=== PATIENT | female | born 1980 | race African-American/Black ===

== ENCOUNTER 2022-10-13 08:53 | Emergency (ER) | payer OTHER, SELFPAY ==
[2022-10-13] VITALS (8 sets, daily range): BP systolic 122–135; BP diastolic 78–86; PULSE 65–80; RESP 18; TEMP 36.6; O2SAT 100; BMI 24.3
--- NOTE | 2022-10-13 09:06 | ED.GENADULT ---
HPI - General Adult General Chief complaint: Abdominal Pain Stated complaint: pain LT flank side T-2 Time Seen by Provider: 10/13/22 08:58 History of Present Illness HPI narrative: 42-year-old female nonsmoker with noncontributory chronic medical history presents for evaluation of gradually worsening epigastric and left upper quadrant pain that started probably 2 days ago. She states that initially she felt like it might be gas pain and seemed to sort of come and go with a mind of its own but largely seems to be worse with some food improved when sitting up and worse when lying flat. She denies associated symptoms such as fever chills, nausea, vomiting or diarrhea. She did have some constipation and admits that she recently fasted for about 3 days. She denies any other change in medications or diet. She denies urinary issues such as frequency, urgency, hematuria. She denies chest pain or shortness of breath. Related Data Allergies Allergy/AdvReac Type Severity Reaction Status Date / Time No Known Drug Allergies Allergy Verified 10/13/22 09:38 Review of Systems Review of Systems Narrative: GENERAL: Denies chills, fatigue, malaise, fever, sweats. HEENT: Denies sinus pain, ear pain, sore throat, difficulty swallowing, dizziness. RESPIRATORY: Denies dyspnea, cough, wheezing, hemoptysis, sputum. CARDIOVASCULAR: Denies chest pain, palpitations, orthopnea, edema, GASTROINTESTINAL: See HPI : Denies dysuria, frequency, incontinence, hematuria, urinary retention. MUSCULOSKELETAL: denies weakness, joint pain, or bony pain SKIN: Denies rash, skin lesions, or other NEUROLOGIC: Denies weakness, headache, numbness, change in speech, confusion, seizures, incoordination. PSYCHIATRIC: No concerning psychosocial issues. 12 point review of systems is negative except for those stated above Patient History Social History Smoking Status: Never smoker Exam Narrative Exam Narrative: GENERAL: [42] year old patient appears stated age. Well-developed patient, in mild distress. HEAD: Atraumatic. Normocephalic. EYES: Pupils equal round and reactive. Extraocular motions intact. No scleral icterus. No injection or drainage. ENT: Nose without bleeding, purulent drainage. Throat without erythema, tonsillar hypertrophy or exudate. Airway patent. NECK: Trachea midline. Non tender CARDIOVASCULAR: Regular rate and rhythm without murmurs, gallops, or rubs. RESPIRATORY: Clear to auscultation. Breath sounds equal bilaterally. No wheezes, rales, or rhonchi. GASTROINTESTINAL: Abdomen soft, nondistended. Epigastric and left upper quadrant pain on palpation, no rebound, minimal voluntary guarding EXTREMITIES: No edema or joint tenderness. BACK: Nontender without deformity or crepitance. No flank tenderness. NEURO: AOx3. SKIN: No rash or erythema of visible areas Initial Vital Signs Initial Vital Signs: Vital Signs Pulse Rate 73 10/13/22 09:03 Blood Pressure 132/84 10/13/22 09:03 Pulse Oximetry 100 10/13/22 09:03 Course Orders Ordered: Discontinued Medications Sodium Chloride (Normal Saline 0.9%) 1,000 mls @ 1,000 mls/hr IV BOLUS ONE Stop: 10/13/22 10:06 Last Infusion: 10/13/22 11:21 Dose: 0 mls/hr Documented By: Admin: 10/13/22 09:38 Dose: 1,000 mls/hr Documented By: MARK Pantoprazole Sodium (Pantoprazole 40 Mg Vial) 40 mg IV NOW ONE Stop: 10/13/22 09:08 Last Admin: 10/13/22 09:39 Dose: 40 mg Documented By: RB Vital Signs Vital signs: Vital Signs - 8 hr 10/13/22 09:16 10/13/22 09:03 10/13/22 09:03 Temperature 98 F Pulse Rate 80 73 Respiratory Rate 18 Blood Pressure 132/84 132/84 Pulse Oximetry 100 100 Oxygen Delivery Method Room Air 10/13/22 09:30 10/13/22 10:00 10/13/22 10:00 Temperature Pulse Rate 72 71 Respiratory Rate Blood Pressure 122/78 Pulse Oximetry 100 100 Oxygen Delivery Method Medical Decision Making Lab Data 10/13/22 09:10 10/13/22 09:35 Labs: Lab Results 10/13/22 10/13/22 10/13/22 Range/Units 09:10 09:10 09:35 WBC 6.7 (4.5-11.0) X10^3/uL RBC 4.45 (4.0-5.2) X10^6/uL Hgb 12.1 (12.0-16.0) g/dL Hct 36.3 (36-46) % MCV 81.5 (80-100) fL MCH 27.2 (26-34) PG MCHC 33.4 (30-36) % RDW 17.4 H (11.6-14.8) % Plt Count 382 (150-400) X10^3/uL Neut % (Auto) 65.2 (50-75) % Lymph % (Auto) 25.7 (25-40) % [place] % (Auto) 6.9 (3-14) % Eos % (Auto) 1.4 L (2-4) % Baso % (Auto) 0.8 (0-2) % Neut # (Auto) 4400 (8232-9139) /uL Lymph # (Auto) 1700 (6023-3647) /uL [place] # (Auto) 500 (0-900) /uL Eos # (Auto) 100 (0-450) /uL Baso # (Auto) 100 (0-100) /uL D-Dimer 436 (<500) ng/ml Sodium 135 L (137-145) mmol/L Potassium 4.5 (3.4-5.1) mmol/L Chloride 103 (98-107) mmol/L Carbon Dioxide 28 (22-32) mmol/L BUN 8 (7-17) mg/dL Creatinine 0.75 (0.52-1.04) mg/dL Estimated GFR > 60 (>60) mL/min BUN/Creatinine Ratio 10.7 (6-22) Glucose 87 (70-100) mg/dL Calcium 8.4 (8.4-10.2) mg/dL Magnesium 2.0 (1.6-2.3) mg/dL Total Bilirubin 0.7 (0.2-1.3) mg/dL AST 36 (14-36) IU/L ALT 15 (<35) IU/L Alkaline Phosphatase 28 L (38-126) U/L Total Protein 7.5 (6.3-8.2) g/dL Albumin 3.9 (3.5-5.0) g/dL Globulin 3.6 (1.7-4.1) g/dL Albumin/Globulin Ratio 1.1 (1.0-2.8) Lipase 32 (23-300) U/L Point of Care Testing Test Results Negative Urine Dip Bedside Urine Glucose Negative Bedside Urine Bilirubin - Negative Bedside Urine Ketone - Negative Urine Specific [place] 1.010 Bedside Urine Occult Blood - Negative Bedside Urine pH 6.0 Bedside Urine Protein - Negative Bedside Urine Urobilinogen - Negative Bedside Urine Nitrite - Negative Bedside Urine Leukocytes - Negative Esterase Point of care testing: Point of Care Testing Test Results Negative Urine Dip Bedside Urine Glucose Negative Bedside Urine Bilirubin - Negative Bedside Urine Ketone - Negative Urine Specific [place] 1.010 Bedside Urine Occult Blood - Negative Bedside Urine pH 6.0 Bedside Urine Protein - Negative Bedside Urine Urobilinogen - Negative Bedside Urine Nitrite - Negative Bedside Urine Leukocytes - Negative Esterase MDM Narrative Medical decision making narrative: CC: 42-year-old female with a few days of sharp and stabbing epigastric and left upper quadrant pain Complicating co-morbidities: None known Data collected from: Patient Medical records reviewed: Prior notes reviewed in our EMR Differential considered, but not limited to: Bowel obstruction versus infectious process versus pulmonary embolism versus pancreatitis versus gallbladder disease versus other Exam documented above, pertinent findings include: Epigastric and left upper quadrant pain, abdomen is soft, bowel sounds present, heart rate regular, lungs clear Lab Test results independently reviewed as above. Pertinent findings: No significant abnormalities that would require intervention, D-dimer below cutoff Independently reviewed EKG as above Imaging studies independently reviewed: X-ray with nonspecific bowel gas pattern, CT without acute findings Discussion: 42-year-old female, largely healthy presents with episodic, colicky left upper quadrant pain in the absence of fever, anorexia or vomiting. She did recently change her diet and had been fasting and symptoms started in the aftermath. Multiple diagnoses considered as noted above. Thankfully her history and physical exam are very reassuring, labs unremarkable, imaging demonstrates likely a large stool burden and gas throughout, no surgical findings, patient pain well controlled, tolerating orals Disposition: see below, along with detailed discharge instructions that have been reviewed with patient as well as indications for ED re-evaluation and additional outpatient follow up Discharge Plan Departure Patient Disposition: Home Clinical Impression: Abdominal pain, Constipation Instructions: DI for Abdominal Pain-Adult, DI for Constipation Activity Restrictions/Additional Instructions: *You have been diagnosed with [ abdominal pain due to constipation ] *What to do: *Take over the counter medications as directed: 1. Metamucil - is a bulk forming laxative and adds fiber 2. Colace - softens your stool 3. Dulcolax suppository - stimulates your bowels *Follow up with your primary care provider in 2-3 days, call for appointment *Return to ER if you should have any new, worsening or concerning symptoms *Drink plenty of water and eat foods high in fiber *Stay as active as you can as this helps move your bowels as well Referrals: *[facility]* [Primary Care Provider] - Stand Alone Forms: Patient Portal/API
--- NOTE | 2022-10-13 09:07 | DI.RAD.S_ITS ---
PROCEDURE: XR ACUTE ABDOMEN SERIES INDICATIONS: Abdominal pain TECHNIQUE: One view chest and two views of the abdomen were acquired. COMPARISON: None. FINDINGS: Surgical changes and devices: None. Chest: Lungs are clear. Heart size is normal. No pleural effusions. No pneumoperitoneum. Abdomen: Nonspecific nonobstructive bowel gas pattern. Small volume of colonic stool. No suspicious calcifications. Visualized solid organ contours appear normal. Bones: No suspicious bony lesions. IMPRESSION: Nonspecific nonobstructive bowel gas pattern. If symptoms persist, consider CT of the abdomen and pelvis for further evaluation. Approved by: Yohan Sun M.D. on 10/13/2022 at 9:41
[2022-10-13 09:22] LABS: Add Manual Diff / Slide Review NO; Basophils Absolute Auto 100 /uL (0-100); Basophils Percent Auto 0.8 % (0-2); Eosinophils Absolute Auto 100 /uL (0-450); Eosinophils Percent Auto 1.4 % (2-4); Hematocrit 36.3 % (36-46); Hemoglobin 12.1 g/dL (12.0-16.0); Lymphocytes Absolute Auto 1700 /uL (1100-4500); Lymphocytes Percent Auto 25.7 % (25-40); Mean Corpuscular HGB Conc 33.4 % (30-36); Mean Corpuscular Hemoglobin 27.2 PG (26-34); Mean Corpuscular Volume 81.5 fL (80-100); Monocytes Absolute Auto 500 /uL (0-900); Monocytes Percent Auto 6.9 % (3-14); Neutrophils Absolute Auto 4400 /uL (1500-7000); Neutrophils Percent Auto 65.2 % (50-75); Platelet Count 382 X10^3/uL (150-400); Red Blood Cell Count 4.45 X10^6/uL (4.0-5.2); Red Cell Distribution Width 17.4 % (11.6-14.8); White Blood Cell Count 6.7 X10^3/uL (4.5-11.0)
[2022-10-13 09:32] LABS: D Dimer 436 ng/ml (<500)
[2022-10-13] MEDS: SODIUM CHLORIDE 0.9% 1,000 ML 1000 ML IV (09:38)
[2022-10-13] MEDS: PANTOPRAZOLE 40 MG VIAL IV (09:39)
[2022-10-13 09:57] LABS: Alanine Aminotransferase 15 IU/L (<35); Albumin 3.9 g/dL (3.5-5.0); Albumin Globulin Ratio 1.1 (1.0-2.8); Alkaline Phosphatase 28 U/L (38-126); Aspartate Aminotransferase 36 IU/L (14-36); BUN Creatinine Ratio 10.7 (6-22); Bilirubin Total 0.7 mg/dL (0.2-1.3); Blood Urea Nitrogen 8 mg/dL (7-17); Calcium 8.4 mg/dL (8.4-10.2); Carbon Dioxide 28 mmol/L (22-32); Chloride 103 mmol/L (98-107); Estimated Glomerular Filt Rate > 60 mL/min (>60); Globulin 3.6 g/dL (1.7-4.1); Glucose 87 mg/dL (70-100); Lipase 32 U/L (23-300); Potassium 4.5 mmol/L (3.4-5.1); Sodium 135 mmol/L (137-145); Total Protein 7.5 g/dL (6.3-8.2)
[2022-10-13 09:58] LABS: HEMOLYSIS 191 (0-50)
--- NOTE | 2022-10-13 10:28 | DI.CT.S_ITS ---
PROCEDURE: CT ABDOMEN PELVIS W CON INDICATIONS: severe abdominal pain TECHNIQUE: After the administration of intravenous contrast, axial sections acquired from the lung bases to the pubic symphysis. Coronal and sagittal reformats were performed. For radiation dose reduction, the following was used: automated exposure control, adjustment of mA and/or kV according to patient size. COMPARISON: None. FINDINGS: Image quality: Excellent. Lung bases: Right breast implant partially included. Mild basilar atelectasis. Heart: No significant findings. ABDOMEN: Liver: Unremarkable. Gallbladder: Unremarkable. Biliary ducts: Unremarkable. Pancreas: Unremarkable. Spleen: Unremarkable. Adrenal Glands: Unremarkable. Kidneys and Ureters: Unremarkable. Stomach and Bowel: Stomach, small bowel loops, and colon are unremarkable. Normal appendix. Peritoneum: No abnormal intraperitoneal fluid. No free air. Ventral Wall: No hernias. Abdominal Nodes: No retroperitoneal or mesenteric adenopathy by size criteria. Vessels: Aorta and inferior vena cava are normal in size. PELVIS: Pelvic Organs: Retroverted uterus. A small amount of free fluid is seen in the pelvis. A peripherally enhancing 2.1 cm right ovarian cyst is present. Left ovary is unremarkable. Bladder: Unremarkable. Pelvic Nodes: No enlarged lymph nodes. Miscellaneous: No hernias are seen. Bones: Unremarkable. IMPRESSION: 1. No acute inflammatory process identified in the abdomen or pelvis. 2. Peripherally enhancing right ovarian physiologic cyst. Small amount of free fluid in the pelvis is likely physiologic. Approved by: Yohan Sun M.D. on 10/13/2022 at 11:01
--- NOTE | 2022-10-13 11:24 | PC.NURSE ---
Pt states after medication she has no more pain at rest. When at rest previously, her pain would be worse. Now she is comfortable at rest.
== END 2022-10-13 12:02 | disposition home or self-care (01) ==
PROVIDERS: Emergency Provider Emergency Medicine
DX: R10.13 Epigastric pain (principal); K59.00 Constipation, unspecified
CPT/HCPCS: 36415; 74022; 74177; 80053; 81003; 81025; 83690; 83735; 85025; 85379; 96361; 96374; 99284; C9113; Q9967